=== PATIENT | male | born 1955 | race Caucasian/White ===

== ENCOUNTER → 2017-06-01 | Outpatient (CLI) | payer BC ==
--- NOTE | 2017-06-01 11:05 | REP ---
Peripheral vascular Doppler ultrasound right lower extremity. Bypass graft. History: Peripheral vascular disease. No comparison study. Status post femoral popliteal artery bypass graft. Findings: The right ankle-brachial index is 1.27. Biphasic flow is seen in the common femoral artery. A right fem-pop bypass graft is seen to be patent. There is mild intimal thickening with an area of mild luminal narrowing proximal to a mid graft stent. Otherwise the graft is widely patent. The graft shows biphasic to triphasic flow throughout. It appears to connect distally to the tibioperoneal trunk with reversed flow into the [place] popliteal artery. A large posterior tibial artery is seen leading us to suspect that this is a graft as well. The [place] superficial femoral artery is occluded. Velocity chart right leg: SPIRAL TUBE WINDER 159 cm/sec Profunda, not seen. The [place] superficial femoral artery occluded. Proximal graft 158 cm/sec Mid graft 93 Distal graft 102 Proximal anterior tibial artery 41 Tibioperoneal trunk 84 Proximal posterior tibial artery 47 Distal posterior tibial artery 80 Distal anterior tibial artery not seen. Impression: A right fem-pop bypass graft appears widely patent. Signed by Phil Rojas MD 06/01/2017 03:51 P
== END ==
LOC: M RAD 08:31
PROVIDERS: ATTEND Surgery Vascular Surgery
DX: I73.9 Peripheral vascular disease, unspecified (principal)

== ENCOUNTER → 2017-12-03 | Outpatient (CLI) | payer BC | LOC: M RAD 12:31 | DX: I73.9 Peripheral vascular disease, unspecified (principal) | CPT/HCPCS: 93923 ==

== ENCOUNTER → 2018-06-04 | Outpatient (CLI) | payer MEDICARE, BC ==
[~2018-06-04] MED LIST: ISOVUE-300 61% 50ML VIAL (Q9967) As Ordered; LIDOCAINE 2% MDV 20 ML VIAL As Ordered; MIDAZOLAM INJ 2 MG/2 ML VIAL (J2250) As Ordered; fentaNYL 100 MCG/2 ML INJECTION (J3010) As Ordered
[2018-06-04 07:09] LABS: HEMATOCRIT 41.1 % (42.0-52.0); HEMOGLOBIN 14.4 g/dl (13.5-17.5); MEAN CORPUSCULAR HEMOGLOBIN 31.6 pg (27.0-33.0); MEAN CORPUSCULAR VOLUME 90.1 fl (80.0-96.0); PLATELET COUNT, AUTOMATED 329 10^3/uL (150-450); RED BLOOD COUNT 4.56 10^6/uL (4.30-6.10); RED CELL DISTRIBUTION WIDTH 12.6 % (11.5-14.5)
[2018-06-04 07:22] LABS: INR 2.82; PROTHROMBIN TIME 30.3 SECONDS (12.1-14.4)
[2018-06-04 07:32] LABS: ANION GAP 6 MEQ/L (8-16); BLOOD UREA NITROGEN 19 MG/DL (7-18); CALCIUM LEVEL 8.8 MG/DL (8.8-10.2); CARBON DIOXIDE LEVEL 26 MEQ/L (21-32); CHLORIDE LEVEL 107 MEQ/L (98-107); GLOMERULAR FILTRATION RATE > 60.0 (>49); GLUCOSE, FASTING 114 MG/DL (70-100); POTASSIUM SERUM 4.4 MEQ/L (3.5-5.1); SODIUM LEVEL 139 MEQ/L (136-145)
== END | disposition home or self-care (01) ==
LOC: M IRPRO 06:20
DX: I73.9 Peripheral vascular disease, unspecified (principal); L97.519 Non-pressure chronic ulcer of other part of right foot with unspecified severity; I25.10 Atherosclerotic heart disease of native coronary artery without angina pectoris; Z95.1 Presence of aortocoronary bypass graft; I10 Essential (primary) hypertension; E11.51 Type 2 diabetes mellitus with diabetic peripheral angiopathy without gangrene; E78.00 Pure hypercholesterolemia, unspecified; F17.210 Nicotine dependence, cigarettes, uncomplicated
CPT/HCPCS: 36247

== ENCOUNTER → 2018-10-13 | Outpatient (CLI) | payer MEDICARE, BC ==
--- NOTE | 2018-10-13 16:44 | REP ---
BILATERAL LOWER EXTREMITY DUPLEX DOPPLER ARTERIAL ULTRASOUND: Real-time ultrasound evaluation and duplex Doppler interrogation of bilateral lower extremity arterial systems is performed. On the right, there is a history of a femoral popliteal bypass graft. This graft is patent with a stent in the graft at the mid thigh level. At the popliteal anastomosis there is focal dilatation with mild to moderate thrombus formation and about 50% narrowing of the tibial peroneal trunk due to this thrombus formation. There is occlusion of posterior tibial artery. Right peroneal artery is patent to the mid calf level. Anterior tibial artery is occluded. Distal right posterior tibial artery is reconstituted via a peroneal collateral vessel. Velocity in the [place] right common femoral artery is 117 cm/s with monophasic waveform. The [place] right profunda, superficial femoral artery and popliteal artery are all occluded. Velocity in the right peroneal artery is 61 cm/s with monophasic waveform and in the distal posterior tibial artery 42 cm/s. Within the right bypass graft monophasic waveforms are visualized with peak velocity in the proximal aspect 58 cm/s, distal aspect 47 cm/s and at the anastomosis with the distal popliteal artery 26 cm/s. On the left, there is moderate to severe plaquing and narrowing of the left superficial femoral artery through the arteries of the calf. The anterior and posterior tibial arteries are occluded with reconstitution of the distal anterior tibial artery. Left common femoral artery demonstrates peak systolic velocity 151 cm/s with monophasic waveform. Left profunda velocity 106 cm/s with biphasic waveform. Left superficial femoral artery peak velocity 170 cm/s with monophasic waveform. Left popliteal peak systolic velocity 47 cm/s with monophasic waveform. IMPRESSION: Right femoral popliteal bypass graft is patent. Right anterior and posterior tibial arteries are occluded with patent right peroneal artery. Distal posterior tibial artery is revascularized via a peroneal collateral vessel. There is focal dilatation of the popliteal artery and tibioperoneal trunk at the anastomosis with the bypass graft with focal thrombus in this portion of the dilated vessel causing 50% narrowing of the lumen. On the left, there is moderate to severe plaquing and narrowing of superficial femoral artery through the calf arteries. There is occlusion of the anterior and posterior tibial arteries with reconstitution of the distal anterior tibial artery. Electronically Signed by Tristian Scott MD 10/13/2018 05:22 P
== END ==
LOC: M RAD 13:56
PROVIDERS: ATTEND Surgery Vascular Surgery
DX: I74.3 Embolism and thrombosis of arteries of the lower extremities (principal); M79.671 Pain in right foot; M79.672 Pain in left foot; Z95.828 Presence of other vascular implants and grafts

== ENCOUNTER → 2018-12-13 | Outpatient (CLI) | payer MEDICARE, BC ==
[~2018-12-13] MED LIST changes: +HEPARIN 1,000 UNITS/ML 10ML VIAL (FOR RADIOLOGY& DIALYSIS ONLY) As Ordered ONE; -ISOVUE-300 61% 50ML VIAL (Q9967) As Ordered; +ISOVUE-300 61% 50ML VIAL (Q9967) As Ordered ONE; -LIDOCAINE 2% MDV 20 ML VIAL As Ordered; +LIDOCAINE 2% MDV 20 ML VIAL As Ordered ONE; -MIDAZOLAM INJ 2 MG/2 ML VIAL (J2250) As Ordered; +MIDAZOLAM INJ 2 MG/2 ML VIAL (J2250) As Ordered ONE; +PROTAMINE SULF INJ 50 MG/5 ML VIAL (J2720) As Ordered ONE; +diphenhydrAMINE INJ 50MG/ML VIAL (J1200) As Ordered ONE; -fentaNYL 100 MCG/2 ML INJECTION (J3010) As Ordered; +fentaNYL 100 MCG/2 ML INJECTION (J3010) As Ordered ONE
--- NOTE | 2018-12-22 12:51 | REPIR ---
DATE OF PROCEDURE: 12/13/2018 ATTENDING SURGEON: Dr. Mansoor Giang ASSISTANTS: Holly Monaco and Jeanette Ferreira PREOPERATIVE DIAGNOSES: Left limb lower extremity pain. Occlusive disease, left lower extremity. POSTOPERATIVE DIAGNOSES Left limb lower extremity pain. Occlusive disease, left lower extremity. PROCEDURE: Aortogram. Iliofemoral angiogram. Selective left common femoral artery catheter placement. Left lower extremity angiography. Left superficial femoral artery angioplasty and stent with 7 x 120 LITA stent. Left popliteal artery angioplasty and stent with a 6 x 120 LITA stent. Left common femoral artery angioplasty with 6 x 200 balloon. Left superficial femoral artery angioplasty with 6 x 200 balloon. Left popliteal artery angioplasty with 6 x 200 balloon. MYNX closure of the right common femoral arteriotomy. INDICATION: Patient is a 63-year-old male with pain in his left lower extremity who will undergo angiography. Risks, benefits and alternative treatment options were discussed with the patient. ANESTHESIA: Local with sedation with 2 mg Versed, 100 mcg of fentanyl and 10 mL of 2% lidocaine mixed with 0.5% Marcaine. FLUORO TIME: 5.7 minutes. CONTRAST: 12.5 mL. SEDATION TIME: Was from 10:54 a.m. to 11:57 a.m. for a total of 63 minutes. HEPARIN: 7000 units, protamine 50 mg. COMPLICATIONS: None. DRAINS: None. PROCEDURE: Patient was taken to the angiography suite, placed supine on the angiography room table and then prepped and draped in a standard surgical fashion. Right common femoral artery was cannulated, catheter placed in the aorta and aortogram was performed. Catheter was pulled down level with the bifurcation of the iliac arteries and an iliofemoral angiogram was performed. Catheter was directed over the bifurcation, placed in the left common femoral artery and a left lower extremity angiogram was performed. This showed diffuse disease in the common femoral, superficial femoral and popliteal arteries. The left superficial femoral and popliteal artery angioplastied and stented with 7 x 120 and 6 x 120 drug-eluting stents. The left common femoral, superficial femoral, and popliteal arteries were then post dilated with a 6 x 200 balloon. A completion angiogram showed resolution of the stenosis with excellent flow into the left lower extremity. A MYNX closure device was then used to close the arteriotomy in the right common femoral artery with an additional 10 minutes of adjunctive pressure applied for hemostasis. Dressings were then applied. The patient tolerated the procedure well. All sponge, needle and instrument counts were correct at the end of the case. There were no complications. Dr. Giang was present for and directed the entire case. The patient was transferred to the holding area and subsequently discharged in stable condition.
== END | disposition home or self-care (01) ==
LOC: M IRPRO 07:40
PROVIDERS: ATTEND Surgery Vascular Surgery
DX: I70.202 Unspecified atherosclerosis of native arteries of extremities, left leg (principal)
CPT/HCPCS: 37226; C1725; C1760; C1769; C1874; C1887; C1894; J1200; J2250; J2720; J3010

== ENCOUNTER → 2019-01-26 | Outpatient (CLI) | payer MEDICARE, BC ==
--- NOTE | 2019-01-26 13:42 | REP ---
REASON: Bilateral lower extremity claudication. The ankle brachial index was not performed on either side. On the right: Peak systolic velocities MARKETING PROPOSAL COORDINATOR 142.5 cm/s triphasic Profunda 138.8 cm/s biphasic SFA 27.7 cm/s biphasic SFA mid portion occluded SFA distal occluded Popliteal occluded GÓMEZ proximal occluded Tibioperoneal trunk 144.0 cm/s reversed phase DEFLASH AND WASH OPERATOR proximal occluded DEFLASH AND WASH OPERATOR distal 66.1 cm/s monophasic GÓMEZ distal occluded On the left: MARKETING PROPOSAL COORDINATOR 110.6 cm/s triphasic Profunda 138.8 cm/s biphasic SFA 114.8 cm/s biphasic SFA mid 65.2 cm/s biphasic SFA distal 66.3 cm/s biphasic Popliteal 39.2 cm/s biphasic GÓMEZ proximal 55.4 cm/s biphasic Tibioperoneal trunk 60.6 cm/s triphasic DEFLASH AND WASH OPERATOR proximal 64.2 cm/s triphasic DEFLASH AND WASH OPERATOR distal 25.1 cm/s monophasic GÓMEZ distal 51.7 cm/s monophasic Severe atherosclerosis is seen involving the right lower extremity arterial system particularly the MARKETING PROPOSAL COORDINATOR to and including the DEFLASH AND WASH OPERATOR proximally. Electronically Signed by Hector Frye DO 01/26/2019 03:26 P
== END ==
LOC: M RAD 10:44
PROVIDERS: ATTEND Surgery Vascular Surgery
DX: I70.213 Atherosclerosis of native arteries of extremities with intermittent claudication, bilateral legs (principal)

== ENCOUNTER 2019-12-04 15:37 | Emergency (ER) | payer MEDICARE, BC ==
[~2019-12-04] VITALS: Ht 170.2 cm; Wt 85.9 kg
[2019-12-04] MEDS ORDERED: METF500T13 PO (16:08)
[2019-12-04] MEDS ORDERED: WARF-23 PO (16:08)
[2019-12-04] MEDS ORDERED: CLOP75TA2 PO (16:08)
[2019-12-04] MEDS ORDERED: DILA100C PO (16:08)
[2019-12-04] MEDS ORDERED: ROSU10TA6 PO (16:08)
[2019-12-04] MEDS ORDERED: LEVO150T7 PO (16:08)
[2019-12-04] MEDS ORDERED: METO50TA7 PO (16:08)
[2019-12-04 16:17] LABS: BASO # 0.1 10^3/uL (0.0-0.2); BASO % 0.6 % (0.0-1.0); HEMATOCRIT 37.3 % (42.0-52.0); HEMOGLOBIN 11.4 g/dl (13.5-17.5); LYMPH # 1.6 10^3/uL (1.5-5.0); LYMPH % 16.4 % (24.0-44.0); MEAN CORPUSCULAR HEMOGLOBIN 26.9 pg (27.0-33.0); MEAN CORPUSCULAR HGB CONC 30.6 g/dl (32.0-36.5); MONO # 0.8 10^3/uL (0.0-0.8); NEUTROPHILS # 7.5 10^3/uL (1.5-8.5); NEUTROPHILS % 74.6 % (36.0-66.0); PLATELET COUNT, AUTOMATED 368 10^3/uL (150-450); RED BLOOD COUNT 4.24 10^6/uL (4.30-6.10)
[2019-12-04 16:25] LABS: INR 1.92; PARTIAL THROMBOPLASTIN TIME 31.5 SECONDS (25.0-38.4); PROTHROMBIN TIME 21.8 SECONDS (11.8-14.0)
[2019-12-04] MEDS ORDERED: RAMI1CAP26 PO (16:26)
[2019-12-04 16:37] LABS: ALBUMIN 2.8 GM/DL (3.2-5.2); ALT/SGPT 41 U/L (12-78); BILIRUBIN,DIRECT 0.1 MG/DL (0.0-0.2); BILIRUBIN,TOTAL 0.2 MG/DL (0.2-1.0); BLOOD UREA NITROGEN 17 MG/DL (7-18); C REACTIVE PROTEIN QUANTITATIV 6.82 MG/DL (0.00-0.30); CALCIUM LEVEL 9.1 MG/DL (8.8-10.2); CARBON DIOXIDE LEVEL 26 MEQ/L (21-32); CHLORIDE LEVEL 103 MEQ/L (98-107); CREATININE FOR GFR 0.94 MG/DL (0.70-1.30); GLOMERULAR FILTRATION RATE > 60.0 (>49); GLUCOSE, FASTING 101 MG/DL (70-100); POTASSIUM SERUM 4.4 MEQ/L (3.5-5.1); SODIUM LEVEL 135 MEQ/L (136-145); TOTAL PROTEIN 7.8 GM/DL (6.4-8.2)
[2019-12-04 16:38] LABS: ERYTHROCYTE SEDIMENTATION RATE 87 mm/hr (0-20)
[2019-12-04 18:37] VITALS: BP 180/85
[2019-12-04 18:47] LABS: CK-MB VALUE MASS 3.8 NG/ML (<3.6); CPK CREATINE PHOSPHOKINASE 128 U/L (39-308); MB/CK RELATIVE INDEX 2.97 (< OR =4); TROPONIN I 0.03 NG/ML (< 0.10)
--- NOTE | 2019-12-05 08:20 | REP ---
Left ankle series: Four views. History: Ankle pain and swelling. Findings: There is diffuse soft tissue swelling medially and laterally. Ankle mortise is intact. No fractures seen. Vascular calcification is noted. There are surgical clips in the distal calf soft tissues. Plantar calcaneal spurring is noted. Impression: Vascular calcification, heel spurring, and diffuse soft tissue swelling. No fracture seen. Electronically Signed by Phil Rojas MD 12/05/2019 08:11 A
--- NOTE | 2019-12-05 08:42 | REP ---
REASON: Pain and swelling. DEEP VENOUS ULTRASONOGRAPHY LEFT THIGH, RULE OUT DVT: TECHNIQUE: Multiple ultrasonographic images of the deep venous structures of the thigh were obtained from the common femoral vein to the popliteal vein along with Doppler interrogation and color flow Doppler images. FINDINGS: There is no abnormal echogenic material seen within any of the visualized deep venous structures that would suggest acute thrombosis. Coaptation is unremarkable throughout. Doppler interrogation shows an expected response to respiratory variability and augmentation. The color flow images show what appears to be a normal vascular pattern throughout. IMPRESSION: There is no ultrasonographic evidence of deep venous thrombosis involving any of the visualized deep venous structures of the left high, as described above. Electronically Signed by Hector Frye DO 12/05/2019 01:32 P
== END 2019-12-04 18:55 | disposition home or self-care (01) ==
LOC: M ED 15:37
DX: M79.89 Other specified soft tissue disorders (principal); M25.572 Pain in left ankle and joints of left foot; E11.51 Type 2 diabetes mellitus with diabetic peripheral angiopathy without gangrene; I10 Essential (primary) hypertension; I73.9 Peripheral vascular disease, unspecified; Z86.718 Personal history of other venous thrombosis and embolism; Z85.118 Personal history of other malignant neoplasm of bronchus and lung; Z88.0 Allergy status to penicillin; Z79.899 Other long term (current) drug therapy; Z79.84 Long term (current) use of oral hypoglycemic drugs; Z79.02 Long term (current) use of antithrombotics/antiplatelets; Z79.01 Long term (current) use of anticoagulants; Z95.820 Peripheral vascular angioplasty status with implants and grafts; Z89.421 Acquired absence of other right toe(s)